=== PATIENT | male | born 1945 ===

== ENCOUNTER 2022-01-04 06:15 | Inpatient (IN) | payer OTHER ==
[~2022-01-04] VITALS: Ht 177.8 cm; Wt 77.1 kg
[~2022-01-04 06:15] MED LIST: CLONAZEPAM0.5 MG PO; DIOVAN320 MG PO; HYDROCHLOROTH12.5 MG PO; LIPITOR20 MG PO; PROSCAR5 MG PO; PROTONIX20 MG PO; SINGULAIR10 MG PO; XYZAL5 MG PO
[2022-01-04] MEDS ORDERED: COLACE100 MG PO (12:36)
[2022-01-04] MEDS ORDERED: MEDROLPACK PO (12:37)
[2022-01-04] MEDS ORDERED: NEURONTIN800 MG PO (12:37)
[2022-01-04] MEDS ORDERED: AMOX-CLAV 875-1 EACH PO (12:37)
[2022-01-04] MEDS ORDERED: PERCOCET 5-3251 EACH PO (12:37)
== END 2022-01-06 23:28 | DRG 455 ==
LOC: CIR.AMB 06:15 → SURH 17:38
PROVIDERS: ADMIT Orthopaedic Surgery Orthopaedic Surgery of the Spine; ATTEND Orthopaedic Surgery Orthopaedic Surgery of the Spine
PROC: 0SG1071 Fusion of 2 or more Lumbar Vertebral Joints with Autologous Tissue Substitute, Posterior Approach, Posterior Column, Open Approach (ICD-10-PCS; 2022-01-04)
PROC: 0ST20ZZ Resection of Lumbar Vertebral Disc, Open Approach (ICD-10-PCS; 2022-01-04)
PROC: 0QB30ZZ Excision of Left Pelvic Bone, Open Approach (ICD-10-PCS; 2022-01-04)
PROC: 07DR0ZZ Extraction of Iliac Bone Marrow, Open Approach (ICD-10-PCS; 2022-01-04)
PROC: 0SG10A0 Fusion of 2 or more Lumbar Vertebral Joints with Interbody Fusion Device, Anterior Approach, Anterior Column, Open Approach (ICD-10-PCS; principal; 2022-01-04 16:00)
DX: M48.062 Spinal stenosis, lumbar region with neurogenic claudication (principal); M51.36 Other intervertebral disc degeneration, lumbar region; I10 Essential (primary) hypertension; E11.9 Type 2 diabetes mellitus without complications